=== PATIENT | male | born 1965 | race Caucasian/White ===

== ENCOUNTER → 2022-08-29 | Outpatient (CLI) | payer OTHER ==
--- NOTE | 2022-08-29 10:42 | XR ---
EXAMINATION TYPE: XR chest 2V DATE OF EXAM: 08/29/2022 COMPARISON: Chest x-ray 06/08/2016, CT chest 06/16/2016 HISTORY: Z00.00, F17.210 NICOTINE DEPENDENCE TECHNIQUE: Frontal and lateral views of the chest are obtained. FINDINGS: There is no focal air space opacity, pleural effusion, or pneumothorax seen. The cardiac silhouette size is within normal limits. The aorta is dense. Prominent lung volumes, increased retros ternal airspace and AP diameter chest, flattening hemidiaphragms are all consistent with underlying C OPD. The osseous structures are intact, there is thoracic spondylosis. IMPRESSION: No acute cardiopulmonary process. There is underlying emphysema.
== END | disposition home or self-care (01) ==
LOC: RADXRMAIN 09:30
PROVIDERS: ATTEND Family Medicine
DX: J43.9 Emphysema, unspecified (principal); F17.210 Nicotine dependence, cigarettes, uncomplicated
CPT/HCPCS: 71046